=== PATIENT | female | born 1965 | race Hispanic/Latino ===

== ENCOUNTER 2020-01-28 08:58 | Emergency (ER) | payer OTHER ==
[2020-01-28 09:27] VITALS: BP 121/70
--- NOTE | 2020-01-28 09:54 | XRay Report ---
CHEST 2 VIEWS INDICATION / CLINICAL INFORMATION: fever cough. COMPARISON: None available. FINDINGS: SUPPORT DEVICES: None. HEART / MEDIASTINUM: No significant abnormality. LUNGS / PLEURA: There is airspace consolidation in the right upper lobe characteristic of pneumonia. .No pneumothorax. ADDITIONAL FINDINGS: No significant additional findings. IMPRESSION: 1. There is a right upper lobe pneumonia. Short-term follow-up radiograph should be obtained in the n ext several weeks to ensure clearing. Signer Name: José Wilson MD Signed: 01/28/2020 9:50 AM Workstation Name: [id number]
--- NOTE | 2020-01-28 09:55 | Emergency Department Report ---
ED Fever HPI - General Chief Complaint: Fever Stated Complaint: COUGH/FEVER Time Seen by Provider: 01/28/20 09:19 Source: patient Exam Limitations: no limitations - History of Present Illness Initial Comments: Mrs. Hassan is a 54-year-old female with history of hypertension, anxiety, depression, pancreatitis and chronic alcoholism who presents from [facility] for fever and cough. On Thursday she was referred from [facility] urgent care due to increased alcohol use. She requested help. She was then sent to [facility] for further treatment. During routine vital signs it was noted that she had fever. Consequently she was brought to the emergency department. She is otherwise in her state of health normal state of health. She has fever cough. Denies dysuria, abdominal pain. Mild sore throat. No recent travel. Timing/Duration: just prior to arrival Fever Severity/Quality: greater than 100.5 F Associated Symptoms: cough ED Review of Systems ROS: Stated complaint: COUGH/FEVER Other details as noted in HPI Comment: All other systems reviewed and negative Constitutional: fever. denies: malaise Respiratory: cough. denies: shortness of breath Cardiovascular: denies: chest pain ED Past Medical Hx - Past Medical History Previous Medical History?: Yes Hx Hypertension: Yes Additional medical history: alcholism - Surgical History Past Surgical History?: No - Social History Smoking Status: Never Smoker Substance Use Type: Alcohol - Medications Home Medications: Home Medications Medication Instructions Recorded Confirmed Last Taken Type DOXYCYCLINE Hyclate [Vibramycin 100 mg PO Q12HR 10 Days #20 capsule 01/28/20 Unknown Rx CAP] ED Physical Exam - General Limitations: No Limitations General appearance: alert, in no apparent distress - Head Head exam: Present: atraumatic, normocephalic - Eye Eye exam: Present: normal appearance - ENT ENT exam: Present: mucous membranes moist - Neck Neck exam: Present: normal inspection, full ROM - Respiratory Respiratory exam: Present: normal lung sounds bilaterally. Absent: respiratory distress, wheezes, rales, rhonchi - Cardiovascular Cardiovascular Exam: Present: regular rate, normal rhythm, normal heart sounds. Absent: systolic murmur, diastolic murmur, rubs, gallop - GI/Abdominal GI/Abdominal exam: Present: soft, normal bowel sounds. Absent: distended, tenderness, guarding, rebound - Extremities Exam Extremities exam: Present: normal inspection - Back Exam Back exam: Present: normal inspection - Neurological Exam Neurological exam: Present: alert, oriented X3 - Psychiatric Psychiatric exam: Present: normal affect, normal mood - Skin Skin exam: Present: warm, dry, intact, normal color. Absent: rash ED Course Vital Signs 01/28/20 09:22 Temperature 99.3 F Pulse Rate 111 H Respiratory 16 Rate Blood Pressure 121/70 O2 Sat by Pulse 100 Oximetry ED Medical Decision Making - Radiology Data Radiology results: report reviewed, image reviewed Chest x-ray PA lateral: Right upper lobe pneumonia infiltrate - Medical Decision Making Diagnosis kidney acquired pneumonia: Prescribed doxycycline. Critical care attestation.: If time is entered above; I have spent that time in minutes in the direct care of this critically ill patient, excluding procedure time. ED Disposition Clinical Impression: Community acquired pneumonia Disposition: DC-01 TO HOME OR SELFCARE Is pt being admited?: No Does the pt Need Aspirin: No Condition: Stable Instructions: Bacterial Pneumonia (ED) Prescriptions: DOXYCYCLINE Hyclate [Vibramycin CAP] 100 mg PO Q12HR 10 Days #20 capsule Referrals: PRIMARY CARE, [Referring] - 7-10 days
[2020-01-28] MEDS ORDERED: DOXYCYCLINE 100 MG TAB PO STA (10:44)
== END 2020-01-28 11:00 | disposition home or self-care (01) ==
LOC: ED 08:58
DX: J16.8 Pneumonia due to other specified infectious organisms (principal); I10 Essential (primary) hypertension; Z79.899 Other long term (current) drug therapy; Z88.0 Allergy status to penicillin; Z88.8 Allergy status to other drugs, medicaments and biological substances
CPT/HCPCS: 71046; 87400